=== PATIENT | female | born 1995 | race Two or more races ===

== ENCOUNTER 2020-05-03 19:29 | Emergency (ER) | payer OTHER ==
[2020-05-03 19:41] VITALS: BP 146/74
--- NOTE | 2020-05-03 20:13 | ER Document Report ---
ED Medical Screen (RME) - General Stated Complaint: +9 WEEKS CRAMPS AND BLEEDING Time Seen by Provider: 05/03/20 20:07 - HPI Notes: 05/03/20 20:11 24-year-old female , roughly 9 weeks , LMP 02/26/2020 presents to the emergency room for complaints of vaginal bleeding for the last week that has become progressively worse along with pelvic cramping. 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 Denies any nausea vomiting chest pain shortness of breath. States she is going through roughly a pad every few hours. Eating and drink without issues, no fevers or chills. I have greeted and performed a rapid initial assessment of this patient. A comprehensive ED assessment and evaluation of the patient, analysis of test results and completion of the medical decision making process will be conducted by additional ED providers. PHYSICAL EXAMINATION: GENERAL: Well-appearing, well-nourished and in no acute distress. CV: s1, s2 regular LUNGS: No respiratory distress abd: suprapubic tenderness Physical Exam - Vital signs Vitals: Temp Pulse Resp BP Pulse Ox 98.5 F 84 18 146/74 H 100 05/03/20 19:41 05/03/20 19:41 05/03/20 19:41 05/03/20 19:41 05/03/20 19:41 Course - Vital Signs Vital signs: Temp Pulse Resp BP Pulse Ox 98.5 F 84 18 146/74 H 100 05/03/20 19:41 05/03/20 19:41 05/03/20 19:41 05/03/20 19:41 05/03/20 19:41
[2020-05-03 20:55] LABS: ABSOLUTE BASOPHILS # (AUTO) 0.1 10^3/uL (0.0-0.2); ABSOLUTE EOSINOPHILS # (AUTO) 0.3 10^3/uL (0.0-0.6); ABSOLUTE LYMPHOCYTES (AUTO) 1.8 10^3/uL (0.5-4.7); ABSOLUTE MONOCYTES (AUTO) 0.8 10^3/uL (0.1-1.4); ABSOLUTE NEUT (AUTO) 6.7 10^3/uL (1.7-8.2); BASOPHILS % (AUTO) 0.5 % (0-2); EOSINOPHILS % (AUTO) 2.9 % (0-6); HEMATOCRIT 35.9 % (36.0-47.0); LYMPHOCYTES % (AUTO) 18.8 % (13-45); MEAN CORPUSCULAR HEMOGLOBIN 27.7 pg (27.0-33.4); MEAN CORPUSCULAR HGB CONC 33.3 g/dL (32.0-36.0); MEAN CORPUSCULAR VOLUME 83 fl (80-97); MONOCYTES % (AUTO) 8.4 % (3-13); PLATELET COUNT 315 10^3/uL (150-450); RED BLOOD COUNT 4.32 10^6/uL (3.72-5.28); RED CELL DISTRIBUTION WIDTH 13.5 % (11.5-14.0); SEGMENTED NEUTROPHILS % (AUTO) 69.4 % (42-78); TOTAL CELLS COUNTED % (AUTO) 100 %; WHITE BLOOD COUNT 9.7 10^3/uL (4.0-10.5)
[2020-05-03 21:08] LABS: APPEARANCE,URINE SLIGHTLY-CLOUDY; BILIRUBIN,URINE NEGATIVE (NEGATIVE); COLOR,URINE YELLOW; GLUCOSE, URINE NEGATIVE (NEGATIVE); KETONES,URINE NEGATIVE (NEGATIVE); LEUKOCYTE ESTERASE,URINE NEGATIVE (NEGATIVE); NITRITE,URINE NEGATIVE (NEGATIVE); PROTEIN,URINE NEGATIVE (NEGATIVE); URINE SPECIFIC GRAVITY 1.023; UROBILINOGEN,URINE NEGATIVE mg/dL (<2.0)
[2020-05-03 21:13] LABS: ALBUMIN 4.4 g/dL (3.5-5.0); ALKALINE PHOSPHATASE 65 U/L (38-126); ANION GAP 12 (5-19); ASPARTATE AMINO TRANSFERASE 18 U/L (14-36); BILIRUBIN,DIRECT 0.1 mg/dL (0.0-0.4); BILIRUBIN,TOTAL 0.3 mg/dL (0.2-1.3); BLOOD UREA NITROGEN 11 mg/dL (7-20); CARBON DIOXIDE 25 mmol/L (22-30); CHLORIDE 101 mmol/L (98-107); GLUCOSE 107 mg/dL (75-110); POTASSIUM 3.9 mmol/L (3.6-5.0); TOTAL PROTEIN 7.4 g/dL (6.3-8.2)
--- NOTE | 2020-05-03 21:36 | RADIOLOGY REPORT (SQ) ---
EXAM DESCRIPTION: U/S [id number] TRNABD 1GES W/ODOP RadLex: US LESS THAN 14 WEEKS CLINICAL HISTORY: 24 years Female; vaginal bleeding x 1 week, 9w preg; TECHNIQUE: Transabdominal pelvic ultrasound was performed. COMPARISON: None. FINDINGS: Uterus: 9.4 x 8.2 x 6.5 cm. Cervix 2.8 cm Single intrauterine gestational sac Single pole, CRL 2.38 cm, 9 weeks 1 day heart rate 187 BPM Subchorionic hematoma is noted, 3.5 x 3.1 x 1.2 cm Right ovary: 3.8 x 2.3 x 2.3 cm. Normal vascular flow on Doppler. Left ovary: 4.2 x 2.4 x 2.3 cm. Normal vascular flow on Doppler. No free fluid. No adnexal masses. IMPRESSION: 1. Single viable IUP, EGA 9 weeks 1 day 2. Large subchorionic hematoma
--- NOTE | 2020-05-03 22:50 | ER Document Report ---
ED GI/ - General Stated Complaint: +9 WEEKS CRAMPS AND BLEEDING Time Seen by Provider: 05/03/20 20:07 Notes: Patient is a 24-year-old female, G3, P1 at 9 weeks gestation by last menstrual period, that comes emergency department for chief complaint of 1 week of vaginal bleeding. She states bleeding was very light until the past day or so and now she bleeds to her pad every few hours. She reports mild cramping but denies significant pain. She denies injury. She denies dizziness, nausea, vomiting, shortness of breath, passing out. She states she had subsequent hemorrhages with the previous 2 pregnancies as well. She had 1 end with a first trimester miscarriage. Past Medical History - General Information source: Patient - Social History Smoking Status: Never Smoker Frequency of alcohol use: None Drug Abuse: None Lives with: Family Family History: Reviewed & Not Pertinent - Immunizations Immunizations up to date: Yes Hx Diphtheria, Pertussis, Tetanus Vaccination: Yes Review of Systems - Review of Systems Constitutional: No symptoms reported EENT: No symptoms reported Cardiovascular: No symptoms reported Respiratory: No symptoms reported Gastrointestinal: No symptoms reported Genitourinary: No symptoms reported Female Genitourinary: See HPI Musculoskeletal: No symptoms reported Skin: No symptoms reported Hematologic/Lymphatic: No symptoms reported Neurological/Psychological: No symptoms reported Physical Exam - Vital signs Vitals: Temp Pulse Resp BP Pulse Ox 98.5 F 84 18 146/74 H 100 05/03/20 19:41 05/03/20 19:41 05/03/20 19:41 05/03/20 19:41 05/03/20 19:41 - Notes Notes: GENERAL: Alert, interacts well. No acute distress. Talkative and well-appearing HEAD: Normocephalic, atraumatic. EYES: Pupils equal, round, and reactive to light. Extraocular movements intact. ENT: Oral mucosa moist, tongue midline. Oropharynx unremarkable. Airway patent. NECK: Full range of motion. Supple. Trachea midline. No lymphadenopathy. LUNGS: Clear to auscultation bilaterally, no wheezes, rales, or rhonchi. No respiratory distress. Non-tender chest wall. HEART: Regular rate and rhythm. No murmur ABDOMEN: No overt tenderness, guarding, distention. No rigidity EXTREMITIES: Moves all 4 extremities spontaneously. No edema, normal radial and dorsalis pedis pulses bilaterally. No cyanosis. BACK: no cervical, thoracic, lumbar midline tenderness. No saddle anesthesia, normal distal neurovascular exam. Moves all extremities in full range of motion. NEUROLOGICAL: Alert and oriented x3. Normal speech. Cranial nerves II through XII grossly intact. Strength 5/5 in all extremities. PSYCH: Normal affect, normal mood. SKIN: Warm, dry, normal turgor. No rashes or lesions noted. Course - Re-evaluation Re-evalutation: Patient is talkative, smiling, well-appearing, no current complaints. Reassuring exam. Vital signs unremarkable. CBC unremarkable, chemistry unremarkable, hCG elevated. Urinalysis nonspecific with what I suspect is contamination from bleeding vaginally, culture was placed. No urinary symptoms. RhoGam is not indicated. Ultrasound shows intrauterine at 9 weeks and 1 day, there is a large subchorionic hemorrhage, no other concerning findings. I discussed with patient. Provided her with a copy of her results, she states s he is not vomiting at home, is not working currently, and she will perform pelvic precautions. Discussed return precautions. Patient states she has a follow-up with ACID PAINTER on Saturday, coming up closely. Stable and well-appearing at time of discharge. - Vital Signs Vital signs: Temp Pulse Resp BP Pulse Ox 98.5 F 84 18 146/74 H 100 05/03/20 19:41 05/03/20 19:41 05/03/20 19:41 05/03/20 19:41 05/03/20 19:41 - Laboratory Result Diagrams: 05/03/20 20:18 05/03/20 20:18 Laboratory results interpreted by me: 05/03/20 05/03/20 05/03/20 20:18 20:18 20:18 Hct 35.9 L Creatinine 0.51 L Beta HCG, Quant [id number] H Urine Blood LARGE H Discharge - Discharge Clinical Impression: Vaginal bleeding affecting early Condition: Stable Disposition: HOME, SELF-CARE Additional Instructions: Your ultrasound shows a living in the uterus at 9 weeks and 1 day. There is a subchorionic hemorrhage on the ultrasound as we discussed. Please perform pelvic rest, avoid any significant activity (lifting, jumping, running, sexual intercourse, etc.) until cleared by ACID PAINTER. Follow-up closely with your ACID PAINTER appointment. Return if you worsen including severe worsening symptoms including heavy bleeding (i.e. soaking about 1 pad an hour), dizziness, passing out, severe pain, etc.
== END 2020-05-03 23:05 | disposition home or self-care (01) ==
LOC: ER 19:29
DX: O20.9 Hemorrhage in early pregnancy, unspecified (principal); Z3A.09 9 weeks gestation of pregnancy
CPT/HCPCS: 36415; 76801; 80053; 81001; 84702; 85025; 86900; 86901; 87086; 99284